=== PATIENT | female | born 1955 | race Caucasian/White ===

== ENCOUNTER 2017-12-31 09:06 | Emergency (ER) | payer BC ==
[~2017-12-31] VITALS: Ht 167.6 cm; Wt 54.5 kg
[~2017-12-31 09:06] MED LIST: BL ASPIRIN325 MG PO; ENALAPRIL2.5 MG PO; FISH OIL1000 MG PO; METOPROLOL SUCC25 MG OR; PLAVIX75 MG PO; PRAVASTATIN40 MG PO; SENOKOT
[2017-12-31] MEDS ORDERED: ASPIRIN81 MG PO (09:41)
[2017-12-31 09:52] VITALS: BP 149/96
== END 2017-12-31 10:00 | disposition home or self-care (01) | DRG 125 ==
LOC: ED 09:06
DX: S05.02XA Injury of conjunctiva and corneal abrasion without foreign body, left eye, initial encounter (principal); I10 Essential (primary) hypertension; I25.2 Old myocardial infarction; F17.210 Nicotine dependence, cigarettes, uncomplicated; W54.8XXA Other contact with dog, initial encounter; Y92.009 Unspecified place in unspecified non-institutional (private) residence as the place of occurrence of the external cause; Z95.5 Presence of coronary angioplasty implant and graft

== ENCOUNTER 2021-11-14 16:14 | Emergency (ER) | payer BC ==
[~2021-11-14] VITALS: Ht 167.6 cm; Wt 55.0 kg
[~2021-11-14 16:14] MED LIST changes: +ASPIRIN81 MG PO
[2021-11-14 18:09] VITALS: BP 132/78
[2021-11-14 18:15] VITALS: BP 117/69
[2021-11-14 18:30] VITALS: BP 126/78
[2021-11-14 18:45] VITALS: BP 134/80
[2021-11-14 19:00] VITALS: BP 126/79
[2021-11-14 19:15] VITALS: BP 137/91
[2021-11-14] MEDS ORDERED: KEFLEX500 MG PO (19:41)
== END 2021-11-14 21:50 | disposition home or self-care (01) | DRG 125 ==
LOC: ED 16:14
DX: S00.11XA Contusion of right eyelid and periocular area, initial encounter (principal); S00.211A Abrasion of right eyelid and periocular area, initial encounter; I10 Essential (primary) hypertension; I25.2 Old myocardial infarction; F17.210 Nicotine dependence, cigarettes, uncomplicated; W01.0XXA Fall on same level from slipping, tripping and stumbling without subsequent striking against object, initial encounter; Y92.009 Unspecified place in unspecified non-institutional (private) residence as the place of occurrence of the external cause; Z95.5 Presence of coronary angioplasty implant and graft